=== PATIENT | female | born 1945 | race Caucasian/White ===

== ENCOUNTER 2016-05-26 12:55 | Day surgery (SDC) | payer MEDICARE, OTHER ==
--- OUTSIDE RECORDS SUMMARY | 2016-05-26 12:58 | XMS REPORT | Continuity of Care Document ---
:1945 Author Organization [employer] [place] [address] Care Team Providers Name Role Phone Leonie Michael Issa Primary Care Provider [phone] Source Comments This disclosure is being made pursuant to the [employer] program and maynot contain all information available regarding this patient.[employer] Active Allergies and Adverse Reactions Not on File Current Medications Be aware that medications may not be up to date as of this document. Alwaysverify current medications with the patient. Not on file Active Problems Not on file Social History Tobacco Use Types Packs/Day Years Used Date Former Smoker Last Filed Vital Signs Vital Sign Reading Time Taken Blood Pressure 130/80 01/25/2011 12:38 PM RESOURCE TECHNICIAN Pulse 60 01/25/2011 12:38 PM RESOURCE TECHNICIAN Temperature 35.7 C (96.3 F) 01/25/2011 12:38 PM RESOURCE TECHNICIAN Respiratory Rate - - Height - - Weight 68.04 kg (150 lb) 01/25/2011 12:38 PM RESOURCE TECHNICIAN Body Mass Index - - Oxygen Saturation - - Plan of Care Health Maintenance Due Date Last Done Comments Retired-Pertussis Vaccine Adult 07/16/1962 Retired-Tetanus Vaccine Adult 07/16/1962 Mammogram 1983 Colonoscopy 07/16/1993 Well Adult Visit 07/16/1993 Zoster Vaccine 60+ 2003 Bone Density 07/16/2008 Retired-Pneumococcal 23 Vaccine-65+ yo 07/16/2008 Retired-INFLUENZA VACCINE 11/05/2014 Results from Last 3 Months Not on file
--- OUTSIDE RECORDS SUMMARY | 2016-05-26 12:59 | XMS REPORT | Continuity of Care Document ---
:1945 Author Organization [facility] ([facility]) Address [address] [place] [address] Phone [phone] Care Team Providers Name Role Phone Michael Hadley Primary Care Provider [phone] Source Comments This disclosure is being made pursuant to the Care Everywhere program, applicable federal and state laws, and may not contain all informaitonavailable regarding this patient.[facility] ([facility]) Active Allergies and Adverse Reactions Allergen Noted Date Severity Reactions Comments Benzalkonium Chloride 12/17/2015 Flushing Erythromycin 03/16/2010 Rash Sulfa (Sulfonamide Antibiotics) 12/17/2015 Dizziness Current Medications Prescription Sig. Disp. Refills Start Date End Date Status estrogens, conjugated Take 0.625 mg by Active (PREMARIN) 0.625 mg tablet mouth every 72 hours. AMITRIPTYLINE HCL Take 12.5 mg by Active (AMITRIPTYLINE PO) mouth every evening. aspirin 81 mg tablet Take 81 mg by Active mouth daily. folic acid 400 mcg tablet Take 1 mg by Active mouth daily. CALCIUM CARBONATE/VITAMIN Take by mouth. Active D3 (CALCIUM 600 + D PO) MULTIVITAMIN WITH MINERALS Take 1 Dose by Active (MULTIVITAMIN AND MINERALS mouth daily. PO) oxyCODONE-acetaminophen Take 1 Tab by 20 Tab 0 08/25/2010 Active 5-325 mg per tablet mouth every 4 hours as needed. Indications: Pain cholecalciferol (VITAMIN Take 1,000 Units Active D3) 1,000 unit tablet by mouth daily. atorvastatin 10 mg tablet Take 10 mg by Active mouth every evening. 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, consecutive per patient memory 08/10/2010 Hypertropia, right eye (Left hypotropia) 08/10/2010 Lump or mass in breast 07/06/2005 Immunizations Name Dates Previously Given Next Due Influenza, unspecified 12/03/2011 Social History Tobacco Use Types Packs/Day Years Used Date Former Smoker Cigarettes 2.5 15 Quit: 08/05/1978 Alcohol Use Drinks/Week oz/Week Comments No Last Filed Vital Signs Vital Sign Reading Time Taken Blood Pressure 155/76 12/17/2015 3:15 PM CDT Pulse 56 12/17/2015 3:15 PM CDT Temperature 36.2 C (97.2 F) 12/17/2015 3:15 PM CDT Respiratory Rate 16 08/25/2010 11:30 AM CDT Height 1.626 m (5' 4") 12/17/2015 3:15 PM CDT Weight 67.132 kg (148 lb) 12/17/2015 3:15 PM CDT Body Mass Index 25.39 12/17/2015 3:15 PM CDT Oxygen Saturation 97% 12/17/2015 3:15 PM CDT Plan of Care Health Maintenance Due Date Last Done Comments Hepatitis B Vaccine (1 of 3 - Primary Series) 1945 Tdap Vaccine 07/16/1954 Lipid Disorder Screening 07/16/1961 Td Vaccine 07/16/1961 Colonoscopy 07/16/1993 Zoster Vaccine 2003 Mammogram 07/29/2006 07/29/2005 Osteoporosis Screening (DXA Bone Density) 07/16/2008 Pneumococcal Vaccine (1 of 2 - PCV13) 07/16/2008 Influenza Vaccine: Seasonal (#1) 10/06/2015 12/03/2011 Results from Last 3 Months Not on file
[2016-05-26] MEDS ORDERED: LIDOCAINE HCL 10 APPL CARTRIDGE TP ONE (14:10)
--- NOTE | 2016-05-26 14:29 | OR ---
Operative Report - Dictated Report Narrative: Location: Main OR Anesthesia: None Preoperative Diagnosis: Microhematuria Postoperative Diagnosis: Same, benign hyperplastic urethral polyps Procedure: #1 flexible cystoscopy with washing for cytology Indications: 70-year-old female with microhematuria. CT without any urologic pathology. There is an ovarian cyst for which she already has follow-up with gynecology. She is on topical estrogen. Cystoscopy indicated to rule out bladder pathology. Description: Consent obtained. Placed in the frog-leg position. Prepped and draped. Time-out taken . Scope inserted into the urethra and navigated to the bladder with ease. No tumors stones or suspicious lesions No real trabeculation Ureters normal in number and position Normal bladder neck without evidence of cystocele. Washing obtained for cytology and culture Urethra was normal with the exception of some hyperplastic polyps. Very mild segmental membranous trigonitis near the bladder neck. EBL: 0 Specimen: Bladder washing for cytology and culture Condition: tolerate procedure Important Findings: Normal cystoscopy with the exception of hyperplastic urethral polyps which are benign FOLLOW UP: I will see her back in 4 months with a voided urinalysis sooner if trouble. Important she keeps appontment with gynecology on the ovarian cyst.
[2016-05-26 15:00] VITALS: BP 135/75
[2016-05-26 15:13] LABS: Urine Bilirubin Negative (NEGATIVE); Urine Ketone Negative (NEGATIVE); Urine Nitrite Negative (NEGATIVE); Urine Protein Negative (NEGATIVE); Urine Specific Gravity <=1.005 SP.GR. (1.005-1.010); Urine Urobilinogen Normal (NORMAL); Urine pH 6.5 pH (5.0-7.0)
[2016-05-26 15:21] LABS: Urine Appearance Clear; Urine Bacteria None Seen; Urine Blood 10 /ul (NEGATIVE); Urine Color Yellow; Urine RBC None Seen /hpf (0-5); Urine WBC None Seen /hpf (0-5)
== END 2016-05-26 12:56 | disposition home or self-care (01) ==
LOC: AMB 12:55
PROVIDERS: ATTEND Urology
PROC: 3E1K88X Irrigation of Genitourinary Tract using Irrigating Substance, Via Natural or Artificial Opening Endoscopic, Diagnostic (ICD-10-PCS; 2016-05-26)
PROC: 0TJB8ZZ Inspection of Bladder, Via Natural or Artificial Opening Endoscopic (ICD-10-PCS; principal; 2016-05-26 15:00)
DX: N36.2 Urethral caruncle (principal); R31.29 Other microscopic hematuria; E78.5 Hyperlipidemia, unspecified; Z87.891 Personal history of nicotine dependence; Z68.25 Body mass index [BMI] 25.0-25.9, adult